=== PATIENT | female | born 1980 | race Caucasian/White ===

== ENCOUNTER 2018-08-14 06:58 | Day surgery (SDC) | payer OTHER ==
[2018-08-08 15:13] LABS: Absolute Lymphocytes (CBC) 2.2 K/uL (0.7-4.9); Absolute Monocytes 0.3 K/uL (0.1-1.3); Basophils % 0.5 % (0-1.3); Eosinophils % 3.3 % (0-4.4); Hematocrit 37.9 % (36.0-45.0); Lymphocytes % 32.4 % (15.3-44.8); MPV 7.7 fL (7.6-11.3); Monocytes % 4.8 % (3.3-12.3); RBC Red Blood Cell Count 4.55 M/uL (3.86-4.86)
[2018-08-14 07:21] LABS: Specific Gravity 1.025 (1.005-1.030)
[2018-08-14] MEDS: Ringers Lactate 1,000 ML IV ONE ×2 (07:36→08:32)
[2018-08-14] MEDS ORDERED: PROPOFOL 200 MG/20 ML VIAL IV ONE (07:50)
[2018-08-14] MEDS ORDERED: FENTANYL CITR 100 MCG/2 ML ONE (07:50)
[2018-08-14] MEDS ORDERED: DEXAMETHASONE 10 MG/ML VIAL ONE (07:50)
[2018-08-14] MEDS ORDERED: MIDAZOLAM HCL 2 MG/2 ML INJ ONE (07:50)
[2018-08-14] MEDS ORDERED: LIDOCAINE 2% MPF 5 ML VIAL ONE (07:50)
[2018-08-14] MEDS ORDERED: KETOROLAC 30 MG/ML INJ ONE (09:11)
[2018-08-14] MEDS ORDERED: HYDROCODONE/APAP 5/325 MG TAB ONE (10:18)
--- NOTE | 2018-08-14 19:50 | OP ---
Date of Procedure: 08/14/2018 Surgeon: Melania Copeland MD Preoperative Diagnoses: Menorrhagia, (AUB-O/A) and status post 5 caesarean sections. Postoperative Diagnoses: Menorrhagia, (AUB-O/A) and status post 5 caesarean sections. Procedures Performed: Hysteroscopy, dilation and curettage. Anesthesia: General anesthesia with LMA. Specimens: Endometrial curettings. Complications: None. Drains: None. Condition: Stable. Findings: Endometrial cavity empty. No polyps, very thick posterior wall. Entire endometrium appea red to be thickened. Description Of Procedure: After informed consent was verified, the patient was taken back to OR, bharti griffin in a supine fashion on the operating table. After general anesthesia was given, she was placed i n a dorsal lithotomy position using Sai stirrups. Pelvic exam performed. Uterus anteflexed with d ecreased mobility about 10 to 12 week size. After the speculum was placed and cervix exposed, prep x3 with Betadine was done. The sounding lengt h of the uterine cavity was 12 cm. The anterior lip was grasped with a single-tooth tenaculum. A Sl imLine hysteroscope, 30-degree lens, normal saline were used for distention medium. Direct hysterosc opy through the cervical canal into the uterine cavity was conducted. Posterior wall appeared to be extremely thick. The entire cavity was full of clots and this had to be irrigated and cleaned out be fore visualization was optimal. Both tubal ostia were well visualized. There was thickened endometr ium all over, however, more prominent in the posterior wall. After scope was removed, endometrial cu rettings were performed with a #2 curette. A large amount of tissue sample was retrieved. After thi s was done, all the instruments were removed. Instrument, needle, and sponge counts were done and we re correct at the end of the case. The patient tolerated the procedure well. She was recovered from anesthesia in the OR and taken to PACU in stable condition. She will follow up with me in 1 week fo r results followup. NANCY/AXEL Voice ID: [id number] Report ID: [id number]
== END 2018-08-14 10:58 | disposition home or self-care (01) ==
LOC: OR 06:58
PROVIDERS: ATTEND Obstetrics & Gynecology
PROC: 0UJD8ZZ Inspection of Uterus and Cervix, Via Natural or Artificial Opening Endoscopic (ICD-10-PCS; 2018-08-14)
PROC: 0UDB7ZX Extraction of Endometrium, Via Natural or Artificial Opening, Diagnostic (ICD-10-PCS; principal; 2018-08-14 08:30)
DX: N92.1 Excessive and frequent menstruation with irregular cycle (principal); N94.5 Secondary dysmenorrhea; D50.0 Iron deficiency anemia secondary to blood loss (chronic); E06.3 Autoimmune thyroiditis; Z80.3 Family history of malignant neoplasm of breast; Z82.3 Family history of stroke; Z82.49 Family history of ischemic heart disease and other diseases of the circulatory system
CPT/HCPCS: 36415; 81025; 85025; 88305; J1100; J2250; J2704; J3010